=== PATIENT | female | born 1945 | race Asian ===

== ENCOUNTER 2016-07-22 12:35 | Emergency (ER) | payer MEDICARE, OTHER ==
[~2016-07-22] VITALS: Wt 64.5 kg
[~2016-07-22 12:35] MED LIST: ATOR40TA21; BISO1TAB; CALC-375; OMEP20CA9; TRAZ50TA18 PO; VALS320T11; [UNRECOGNIZED DRUG - CODE] MM
[2016-07-22] MEDS ORDERED: SODIUM CHLORIDE 0.9% 1L BAG IV* STA (13:04)
[2016-07-22] MEDS ORDERED: ACETAMINOPHEN 500 MG TAB PO STA (13:04)
--- NOTE | 2016-07-22 13:13 | ERD ---
ER Documentation Chief Complaint Date/Time DATE: 07/22/16 TIME: 13:10 Chief Complaint fever and cough and congestion for the past week. HPI 71-year-old female who presents to the emergency room for fever cough and congestion. The patient is a somewhat limited historian with flat affect but otherwise appropriate. The patient describes approximately 4-5 days of symptoms including dry nonproductive cough, myalgias and malaise as well as fever. The patient was noted to have a fever of 104. She denies any headache or neck stiffness, no abdominal pain nausea vomiting or diarrhea. ROS All systems reviewed and are negative except as per history of present illness. Medications Home Meds Active Scripts Azithromycin* (Zithromax*) 250 Mg Tablet, 250 MG PO DAILY for 4 Days, TAB Prov:PABLO MARCH MD 07/22/16 Ibuprofen* (Motrin*) 600 Mg Tab, 600 MG PO Q6H Y for PAIN AND OR ELEVATED TEMP, #30 TAB Prov:PABLO MARCH MD 07/22/16 Oseltamivir Phosphate* (Tamiflu*) 75 Mg Capsule, 75 MG PO BID for 5 Days, CAP Prov:PABLO MARCH MD 07/22/16 Reported Medications Valsartan* (Diovan*) 320 Mg Tablet, 320 MG PO DAILY, TAB 07/22/16 Sertraline Hcl* (Sertraline Hcl*) 100 Mg Tablet, 100 MG PO DAILY, #90 07/22/16 Omeprazole* (Omeprazole*) 20 Mg Capsule.dr, 20 MG PO AC BREAKFAST, #90 07/22/16 Atorvastatin* (Atorvastatin*) 40 Mg Tablet, 40 MG PO QHS, #90 07/22/16 Bisoprolol Fumarate/Hctz (Bisoprolol-Hctz 10-6.25 mg Tab) 1 Each Tablet, 1 TAB PO DAILY, #90 07/22/16 Discontinued Reported Medications Clotrimazole* (Mycelex Nicolás*) 10 Mg Troc, 10 MG MM QID 05/07/11 Trazodone Hcl* (Trazodone Hcl*) 50 Mg Tablet, 50 MG PO HS 05/07/11 Calcium Citrate/Vitamin D3 (Citracal + D Caplet) 1 Tab Tablet 06/11/10 Atorvastatin (Lipitor) 40 Mg Tablet 06/11/10 Valsartan* (Diovan*) 320 Mg Tablet 06/11/10 Bisoprol/Hydrochlorothiazide (Ziac 04/21.25 Mg Tablet) 1 Tab Tablet 06/11/10 Omeprazole* (Prilosec*) 20 Mg Capsule. 06/11/10 Allergies Allergies: Coded Allergies: No Known Allergy (Verified , 05/07/11) PMhx/Soc History of Surgery: Yes (S/P LAP CHOLECYTECTOMY 12/03, PARATHYROID SURGERY IN 2009) Anesthesia Reaction: No Hx Neurological Disorder: No Hx Respiratory Disorders: No Hx Cardiac Disorders: No Hx Psychiatric Problems: No Hx Miscellaneous Medical Probl: No Hx Alcohol Use: No Hx Substance Use: No Hx Tobacco Use: No FmHx Family History: No diabetes Physical Exam Vitals Vital Signs Date Time Temp Pulse Resp B/P Pulse Ox O2 Delivery O2 Flow Rate FiO2 07/22/16 14:47 99.3 69 19 123/73 100 Room Air 07/22/16 12:49 104.1 85 20 164/71 98 Physical Exam General: Well developed, well nourished, no acute distress Head: Normocephalic, atraumatic. Eyes: Pupils equally reactive, EOM intact ENT: Moist mucous membranes Neck: Supple, no lymphadenopathy Respiratory: Lungs clear bilaterally, no distress Cardiovascular: Slight tachycardia, no murmurs, rubs, or gallops Abdominal: Soft, non-tender, non-distended, no peritoneal signs : Deferred MSK: No edema, no unilateral swelling, 5/5 strength Neurologic: Alert and oriented, moving all extremities, normal speech, no focal weakness, no cerebellar signs, no meningismus Skin: No rash Psych: Normal mood Result Diagram: 07/22/16 1320 07/22/16 1320 Results 24 hrs Laboratory Tests Test 07/22/16 13:20 Activated Partial Thromboplast Time 26.8Sec Alanine Aminotransferase (ALT/SGPT) 56IU/L Albumin 4.2g/dl Albumin/Globulin Ratio 1.16 Alkaline Phosphatase 89IU/L Anion Gap 19 Aspartate Amino Transf (AST/SGOT) 50IU/L Basophils # 0.010^3/ul Basophils % 0.2% Blood Morphology Comment Blood Urea Nitrogen 15mg/dl Calcium Level 9.1mg/dl Carbon Dioxide Level 25mmol/L Chloride Level 99mmol/L Creatinine 1.18mg/dl Direct Bilirubin 0.00mg/dl Eosinophils # 0.010^3/ul Eosinophils % 0.7% Globulin 3.60g/dl Glucose Level 105mg/dl Hematocrit 43.0% Hemoglobin 14.9g/dl INR International Normalized Ratio 0.90 Indirect Bilirubin 0.5mg/dl Lactic Acid Level 1.0mmol/L Lymphocytes # 0.310^3/ul Lymphocytes % 4.2% Mean Corpuscular Hemoglobin 31.0pg Mean Corpuscular Hemoglobin Concent 34.6g/dl Mean Corpuscular Volume 89.7fl Mean Platelet Volume 7.4fl Monocytes # 0.310^3/ul Monocytes % 4.2% Neutrophils # 5.510^3/ul Neutrophils % 90.7% Nucleated Red Blood Cells # 0.010^3/ul Nucleated Red Blood Cells % 0.0/100WBC Platelet Count 58512^3/UL Potassium Level 3.6mmol/L Prothrombin Time 12.1Sec Prothrombin Time Ratio 0.9 Red Blood Count 4.8010^6/ul Red Cell Distribution Width 13.3% Sodium Level 139mmol/L Total Bilirubin 0.5mg/dl Total Protein 7.8g/dl Troponin I < 0.010ng/ml Urine Bilirubin NEGATIVE Urine Clarity CLEAR Urine Color LT. YELLOW Urine Epithelial Cells RARE Urine Glucose NEGATIVE% Urine Hemoglobin 3+ Urine Ketones NEGATIVE Urine Leukocyte Esterase NEGATIVE Urine Microscopic RBC 2-5/HPF Urine Microscopic WBC NONE SEEN/HPF Urine Nitrite NEGATIVE Urine Specific [place] 1.010 Urine Total Protein NEGATIVE Urine Urobilinogen 0.2 E.U./dL Urine pH 6.0 White Blood Count 6.010^3/ul Current Medications Medications (Trade) Dose Ordered Sig/Angelo Route PRN Reason Start Time Stop Time Status Last Admin Dose Admin Sodium Chloride (NS) 2,000 ml BOLUS OVER 2 HOURS STAT IV* 07/22/16 13:04 07/22/16 13:07 DC 07/22/16 14:07 Acetaminophen (Tylenol Tab) 1,000 mg ONCE STAT PO 07/22/16 13:04 07/22/16 13:07 DC 07/22/16 14:07 Azithromycin (Zithromax) 500 mg ONCE ONCE PO 07/22/16 15:00 07/22/16 15:01 Procedures/MDM EKG, MONITORS, & DIAGNOSTIC IMAGING: EKG: I reviewed and interpreted a 12-lead EKG. Rhythm: Normal sinus rhythm Ectopy: None Intervals: No abnormalities ST segments: No elevations or depressions T waves: No contiguous inversions Chest x-ray: I reviewed and interpreted a 1 view of the chest Mediastinum: No enlargement Cardiac silhouette: No cardiomegaly Airspace: Clear lung [place] bilaterally without evidence of pneumothorax Bones: No evidence of fracture LAB INTERPRETATION: No significant leukocytosis, normal lactate MEDICAL DECISION MAKING: The patient presents with fever. The patient's presentation is most consistent with likely influenza-like illness or viral syndrome. Consider possible pneumonia. Low clinical concern for meningitis. She has no meningismus, no significant altered mental status. She is otherwise well-appearing and appropriate. The patient does have significant fever which would prompt laboratory testing to rule out sepsis. However, lower clinical concern for this process. The patient will benefit from laboratory testing, chest x-ray imaging, antipyretics and fluids. ER COURSE: Radiology was concern for possible atelectasis at the left base. The patient did have a fever. This could be career services representative of an early pneumonia. The patient meets low risk criteria based on the curb 65 score. The patient continues to be well-appearing here in the emergency department. She is now afebrile with normal vital signs. Given no significant leukocytosis, no hypoxia no hypertension I do not believe that the patient would benefit from inpatient hospitalization. The patient will be given Tamiflu, first dose of azithromycin for possible pneumonia. The patient was advised to follow-up with primary care physician and we discussed strict return precautions. I kept the patient and/or family informed of laboratory and diagnostic imaging results throughout the emergency room course. DISPOSITION PLAN: We discussed follow up with the patient's primary care doctor within 24 to 48 hours as needed. We also discussed return to the emergency room for worsening symptoms or worsening condition. Discharge Medications: Tamiflu, azithromycin, Motrin Departure Diagnosis: Primary Impression: Influenza-like illness Additional Impression: Febrile illness, acute Condition: Stable PABLO MARCH MD Jul 22, 2016 13:12
[2016-07-22 13:45] LABS: ADD UMIC YES; URINE BILIRUBIN (Dip) NEGATIVE (NEGATIVE); URINE BLOOD (Dip) 3+ (NEGATIVE); URINE COLOR LT. YELLOW (YELLOW); URINE GLUCOSE (Dip) NEGATIVE (NEGATIVE); URINE KETONES (Dip) NEGATIVE (NEGATIVE); URINE LEUKOCYTE ESTERASE (Dip) NEGATIVE (NEGATIVE); URINE NITRITE (Dip) NEGATIVE (NEGATIVE); URINE TOTAL PROTEIN (Dip) NEGATIVE (NEGATIVE); URINE UROBILINOGEN (Dip) 0.2 E.U./dL (0.1-1.0)
[2016-07-22 13:47] LABS: BASOPHILS % 0.2 % (0.0-2.0); CONDITION 1; EOSINOPHILS % 0.7 % (0.0-7.0); HEMOGLOBIN 14.9 g/dl (12.0-16.0); LH ANALYZER COMMENTS 1; LYMPHOCYTES # 0.3 10^3/ul (0.8-2.9); LYMPHOCYTES % 4.2 % (15.0-51.0); MEAN CORPUSCULAR HGB CONC 34.6 g/dl (32.0-37.0); MEAN CORPUSCULAR VOLUME 89.7 fl (82.0-101.0); MEAN PLATELET VOLUME 7.4 fl (7.4-10.4); MONOCYTE # 0.3 10^3/ul (0.3-0.9); MONOCYTES % 4.2 % (0.0-11.0); NEUTROPHIL # 5.5 10^3/ul (1.6-7.5); NEUTROPHILS % 90.7 % (39.0-77.0); PLATELET COUNT 111 10^3/UL (140-440); RED CELL DISTRIBUTION WIDTH 13.3 % (11.5-14.5)
[2016-07-22 13:59] LABS: ALBUMIN 4.2 g/dl (3.3-4.9); CHLORIDE 99 mmol/L (97-110)
[2016-07-22 14:00] LABS: INR 0.9; POTASSIUM 3.6 mmol/L (3.5-5.1); PROTIME 12.1 Sec (12.2-14.2); PT RATIO 0.9; SODIUM 139 mmol/L (135-144)
[2016-07-22 14:01] LABS: PARTIAL THROMBOPLASTIN TIME 26.8 Sec (25.0-35.0)
[2016-07-22 14:02] LABS: ALANINE AMINOTRANSFERASE 56 IU/L (13-69); ALBUMIN/GLOBULIN RATIO 1.16; ALKALINE PHOSPHATASE 89 IU/L (42-121); ANION GAP 19 (8-16); ASPARTATE AMINO TRANSFERASE 50 IU/L (15-46); BILIRUBIN,INDIRECT 0.5 mg/dl (0-1.1); BILIRUBIN,TOTAL 0.5 mg/dl (0.2-1.3); BLOOD UREA NITROGEN 15 mg/dl (7-20); CARBON DIOXIDE 25 mmol/L (21-31); CREATININE 1.18 mg/dl (0.44-1.00); TOTAL PROTEIN 7.8 g/dl (6.1-8.1)
[2016-07-22 14:03] LABS: CALCIUM 9.1 mg/dl (8.4-10.2); GLUCOSE 105 mg/dl (70-220)
[2016-07-22 14:14] LABS: TROPONIN-I < 0.010 ng/ml (0.00-0.12)
[2016-07-22] MEDS ORDERED: ATOR40TA68 PO (14:23)
[2016-07-22] MEDS ORDERED: BISO1TAB6 PO (14:23)
[2016-07-22] MEDS ORDERED: SERT-165 PO (14:24)
[2016-07-22] MEDS ORDERED: OMEP20CA16 PO (14:24)
[2016-07-22] MEDS ORDERED: VALS320T11 PO (14:25)
--- NOTE | 2016-07-22 14:28 | RADRPT ---
PROCEDURE: XR Chest. CLINICAL INDICATION: Possible sepsis. TECHNIQUE: Single frontal chest x-ray. COMPARISON: None available. FINDINGS: The cardiomediastinal silhouette is unremarkable. Aortic atherosclerotic vascular calcifications are identified. Left basilar atelectasis versus air space disease is noted. No pneumothorax, pleural effusion or co nsolidation is seen. No acute osseous abnormality is noted. IMPRESSION: 1. Left basilar atelectasis versus air space disease. 2. Aortic atherosclerosis. RPTAT: HH .Janene King MD, Date Time Electronically viewed and signed by .Janene King MD, on 07/22/2016 14:27 .N/
[2016-07-22] MEDS ORDERED: OSLT75C PO (14:44)
[2016-07-22] MEDS ORDERED: IBUP-1542 PO (14:44)
[2016-07-22 14:47] VITALS: BP 123/73; PULSE 69; RESP 19; TEMP 99.3
[2016-07-22] MEDS ORDERED: AZIT250T94 PO (14:48)
[2016-07-22] MEDS ORDERED: AZITHROMYCIN 250 MG TAB PO ONE (15:00)
== END 2016-07-22 15:10 | disposition home or self-care (01) ==
LOC: E/R 12:35
DX: R05 Cough (principal); R40.2252 Coma scale, best verbal response, oriented, at arrival to emergency department; R50.9 Fever, unspecified; R09.81 Nasal congestion; M79.1 Myalgia; R53.81 Other malaise; R40.2362 Coma scale, best motor response, obeys commands, at arrival to emergency department; R40.2142 Coma scale, eyes open, spontaneous, at arrival to emergency department
CPT/HCPCS: 71010; 80053; 81001; 81003; 83605; 84484; 85025; 85610; 85730; 87040; 87086; 87400; J7030; 36415